=== PATIENT | female | born 1925 | race Caucasian/White ===

== ENCOUNTER 2016-05-19 10:34 | Inpatient (IN) | payer MEDICARE, BC ==
[~2016-05-19] VITALS: Ht 165.1 cm; Wt 70.4 kg
--- NOTE | ~2016-05-19 | DS ---
ADMIT: 05/19/2016 RM/LOC: 431 [facility] MR#: [id number] [id number] [place], [place] [address] NABIL PORTER [address] [place] [address] Discharge Summary SEX: F AGE: 89 : 1925 ADMISSION DATE: 05/19/2016 DISCHARGE DATE: 05/20/2016 DISCHARGE DIAGNOSES: 1. Weakness. 2. Bradycardia. 3. Influenza A positive. 4. Upper respiratory infection. 5. Hypertension. 6. Elevated troponin. 7. Lower extremity edema. 8. Gastroesophageal reflux disease. 9. History of B12 deficiency. 10.History of JAK2 positive polycythemia vera. HOSPITAL COURSE: The patient was admitted. Was given some IV fluids. She was found to be dehydrated also. Was given some IV fluids and overall was actually doing much better. It was noted that she had at home been taking some atenolol 50 mg p.o. b.i.d. This was held and her heart rate got much better during her hospital stay. She was also tested positive for influenza A, but she had been too long ago outside the window where treatment would benefit her. Therefore, the plan was for the patient to be discharged back to home because she was feeling better. She did not want home health care. Her meds were going to be hydralazine 50 mg p.o. t.i.d., omeprazole 20 mg p.o. daily, KCl 10 mEq p.o. daily, Hydrea 50 mg p.o. t.i.d., pravastatin 10 mg p.o. daily. No atenolol. Follow up with Estelle Cadena later this week. It took me 30 minutes in the discharge planning and coordination care of this patient. Lynnette Cardona MD/ eric JOB #: [id number] CC: Lynnette Cardona MD, Attending Physician Lynnette Cardona MD, Family Physician
[~2016-05-19 10:34] MED LIST: APRESOLINE-DPS50 MG PO; ASPIR 8181 MG PO; HYDREA DPS500 MG PO; LASIX DPS20 MG PO; OCUVITE SOFTGE1 EACH PO; POTASSIUM CHLO10 MEQ PO; PRAVACHOL10 MG PO; PRILOSEC DPS20 MG PO; TENORMIN DPS50 MG PO; VITAMIN C1000 MG PO; VITAMIN D50000 UNI1 PO; VITAMIN E400 UNI2 PO
[2016-05-21] MEDS ORDERED: APRESOLINE-DPS50 MG PO (17:34)
[2016-05-21] MEDS ORDERED: PRAVACHOL10 MG PO (17:35)
[2016-05-21] MEDS ORDERED: PRILOSEC DPS20 MG PO (17:35)
[2016-05-21] MEDS ORDERED: MICRO-K DPS10 MEQ PO (17:35)
[2016-05-21] MEDS ORDERED: HYDREA DPS500 MG PO (17:35)
--- NOTE | 2016-05-22 15:16 | ER ---
ADMIT: 05/19/2016 RM/LOC: ER [facility] MR#: [id number] [address] [facility] [address], [place] [address] NABIL PORTER [address] [place] [address] Emergency Room Report SEX: F AGE: 89 : 1925 DATE: 05/19/2016 Ms. Porter is an 89-year-old presents to the emergency room with her family, and son complaining of feeling extremely weak. She is run down and this has been going on for about 2 days. She also explains she is lightheaded, decreased ability to stand up and walk. She went to the doctor and was seen a week ago. Labs were drawn and she cannot tell me what transpired at the time except that she was given some diuretics and she has taken them. As a matter of fact, she did take a couple yesterday. She is also taking potassium supplements. REVIEW OF SYSTEMS: Otherwise negative. PAST MEDICAL HISTORY: Includes hypertension, polycythemia vera, she has chronic leg edema without pain, she has had interstitial lung disease and in the past has had a troponin leak on 11/21/2015. She denies any shortness of breath, any chest pain, orthopnea. PHYSICAL EXAMINATION: GENERAL: She is afebrile, nontoxic. She is alert but weak, mildly anxious, very pleasant, family awesome. VITAL SIGNS: 153/55 with heart rate of 57, respirations 16, O2 sats 97%, and temp 97. HEENT: Normal inspection. NECK: Supple. RESPIRATIONS: No distress. CVS: Bradycardia, ABDOMEN: Nontender. SKIN: Good color and turgor. EXTREMITIES: Pedal edema 1+ bilaterally. NEURO: Normal function, oriented x4. Mood and affect appropriate. Cranial ADMIT: 05/19/2016 RM/LOC: ER [facility] MR#: [id number] [address] [facility] [address], [place] [address] NABIL PORTER [address] [place] [address] Emergency Room Report SEX: F AGE: 89 : 1925 nerves II through XII are intact. There is no nystagmus nor tongue deviation. Sensory and motor are intact. LABORATORY DATA: Chest x-ray, negative for any pathology. CBC; white count is 8.2 with a hemoglobin of 15.9, hematocrit is 48.3. BNP 520. She has polycythemia vera. UA normal. CK 16. Troponin 0.224. Her BUN is 29, glucose 107, creatinine is 1.2. CRP 0.55. Her EKG sinus renee at 57 beats per minute. CLINICAL IMPRESSION: Dizziness, lightheadedness, elevated cardiac enzymes, and weakness. Dr. Cardona was contacted for admission and trends of cardiac enzymes. KAITLYNN Sutton / Steven Mendieta MD / demarcusl JOB #: [id number] CC: Steven Mendieta MD, Attending Physician Estelle Cadena APRN, Family Physician
--- NOTE | 2016-06-05 09:36 | HP ---
ADMIT: 05/19/2016 RM/LOC: 431 [facility] MR#: [id number] [id number] [place], [place] [address] NABIL PORTER [address] [place] [address] History and Physical SEX: F AGE: 89 : 1925 DATE OF SERVICE: 05/19/2016 HISTORY OF PRESENT ILLNESS: An 89-year-old female with past medical history of JAK2 positive polycythemia vera, hypertension, GERD, diverticulosis, vitamin B12 deficiency, osteoarthritis, and chronic elevation of troponin, who presents with acute weakness. The patient was recently assessed in the emergency department on the of this month for increasing shortness of breath, weakness, and nonproductive cough that evaluation was essentially negative, but she was put on a 10-day course of doxycycline, albuterol, and 4-day course of prednisone. Since she discharged from the ED, she had been feeling pretty good for 2 days after; however, over the past couple of days and especially today, she notes that she is very weak again. She denies any associated symptoms. No fevers, chills, or sweats. No shortness of breath or cough. She says she just feels weak especially in the legs. Her was recently ill with an upper viral respiratory infection. She does endorse some lightheadedness from time to time when she gets up from a seated position. She denies chest pain or heart palpitations and denies any recent history of fall. She states that she takes all her medications as prescribed, and she does not know of any recent addition. She believes that she has been taking atenolol 50 mg twice daily. Otherwise, she endorses some intermittent constipation, but has been tolerating oral intake without nausea or vomiting or diarrhea. She had two days. She denies hematuria, melena, or hematochezia. PAST MEDICAL HISTORY: JAK2 positive polycythemia vera, hypertension, GERD, vitamin B12 deficiency, osteoarthritis, diverticulosis, and chronic troponin leak. SOCIAL HISTORY: Does not drink alcohol. Does not smoke. Endorses no nonprescription or illicit drug use. REVIEW OF SYSTEMS: A complete review of systems was obtained and is negative unless noted in the HPI. MEDICATIONS: Home medication list was reviewed and was updated on the chart. PHYSICAL EXAMINATION: VITAL SIGNS: Afebrile, blood pressure 150s/50s, heart rate 50s, respiratory rate 16, and pulse oximetry 97% on room air. GENERAL: Appearing fatigued, but in no acute distress. Alert and oriented x4, cooperative and interactive. HEENT: Mucous membranes are moist. No scleral icterus. Extraocular movements are intact. Pupils are equally reactive bilaterally. No oral lesions noted. CARDIOVASCULAR: Regular rhythm. Bradycardia. No murmurs, rubs, or gallops. No extra heart sounds. LUNGS: Clear to auscultation bilaterally. No crackles, wheeze, or coarse breath sounds. ABDOMEN: Soft, nontender, and nondistended. Bowel sounds active. No ADMIT: 05/19/2016 RM/LOC: 431 [facility] MR#: [id number] [address] [place] [id number] NABIL PORTER [address] [place] [address] History and Physical SEX: F AGE: 89 : 1925 hepatosplenomegaly. EXTREMITIES: Mild nonpitting edema of the legs bilaterally. No rash, bruises, or other lesions noted. MUSCULOSKELETAL: Full range of motion. No swollen, warm, or tender joints noted. NEUROLOGIC: Cranial nerves are intact. No focal deficits appreciated. Strength and sensation preserved thoroughout. LABS, IMAGING, AND DATA: Sodium 137, potassium 3.7, creatinine 1.2, BUN 29, glucose 107, chloride 97, calcium 8.6, albumin 3.3. WBC 8.2, platelet 240, hemoglobin 15.9, and hematocrit 48. Troponin 0.224. BNP 520. CK-MB less than 0.5. CRP 0.55. EKG; first-degree AV block noted, heart rate 70s, QTc 453, AK interval 210, potential incomplete right bundle-branch block. Chest x-ray normal appearing chest with no cardiopulmonary abnormalities, effusion, edema, or consolidation is noted. ASSESSMENT AND PLAN: An 89-year-old female with past medical history of JAK2 positive polycythemia vera, hypertension, chronic troponin leak, vitamin B12 deficiency, and gastroesophageal reflux disease, who presents with acute weakness. 1. Weakness, acute, possibly secondary to bradycardia, however, with her recent history of sick . It is possible she is suffering from postviral syndrome. We will obtain influenza and EBV. We will test thyroid function. Orthostatic vital signs were negative. We will continue IV fluids at maintenance rate and encourage p.o. intake. PT/OT consulted. We will also head-on an 8 a.m. serum cortisol to test for adrenal insufficiency. 2. Sinus bradycardia. The patient is consistently in the 50s, sinus rhythm, but over the past few months, she has been more in the 60s to 80s. She believes that she is still taking atenolol 50 mg twice daily; however, this medication is not on her home medication list supplied by her pharmacy. We will hold beta-slava and monitor on continuous telemetry for now. EKG tomorrow morning. First-degree AV block is noted. 3. Hypertension. Continue hydralazine 50 mg 3 times daily. Blood pressure currently within acceptable limits. 4. Chronic troponin elevation. Troponin of 0.224 is decreased from May 13 when it was 0.24. She denies chest pain and heart palpitations. An EKG is negative for any acute coronary changes. She also had a negative stress test, and echo performed in November of 2015, which further supports that this is a chronic elevation of troponin and not an acute issue. Continue home aspirin and statin. Cardiac diet. 5. Lower extremity edema. Mild edema bilaterally, which the patient believes has increased over the last couple of days. ProBNP obtained in the ED was 520, which compared to May 13 is down from 1522. No ADMIT: 05/19/2016 RM/LOC: 431 [facility] MR#: [id number] [address] [address] NABIL PORTER [address] [place] [address] History and Physical SEX: F AGE: 89 : 1925 shortness of breath. An x-ray is negative for pulmonary edema or effusions. Continue home dose of Lasix. 6. Gastroesophageal reflux disease. Continue home ranitidine 150 mg twice daily. 7. History of vitamin B12 deficiency. Rechecking vitamin B12 and folate levels in the setting of weakness and fatigue. 8. Code status. DNR/DNI. 9. Diet. Cardiac. 10.Deep venous thrombosis prophylaxis. Daily subcu Lovenox. DISPOSITION: Monitor on telemetry for at least 24 hours and likely discharge tomorrow versus Saturday. Anurag Ge MD Resident / Lynnette Cardona MD / bertha JOB #: [id number] CC: Lynnette Cardona, Attending Physician Lynnette Cardona, Family Physician
== END 2016-05-20 14:45 | disposition home or self-care (01) | DRG 194 ==
LOC: ER 10:34 → 4PCU 13:55
PROVIDERS: ADMIT Internal Medicine
DX: J10.1 Influenza due to other identified influenza virus with other respiratory manifestations (principal); J84.9 Interstitial pulmonary disease, unspecified; R00.1 Bradycardia, unspecified; D45 Polycythemia vera; E86.0 Dehydration; I10 Essential (primary) hypertension; R79.89 Other specified abnormal findings of blood chemistry; K21.9 Gastro-esophageal reflux disease without esophagitis; E53.8 Deficiency of other specified B group vitamins; M19.90 Unspecified osteoarthritis, unspecified site; Z66 Do not resuscitate